=== PATIENT | female | born 1955 | race Caucasian/White ===

== ENCOUNTER → 2016-04-28 | Outpatient (CLI) | payer BC ==
[~2016-04-28] MED LIST: ALLEGRA PO; ASPIRIN PO; CERTAGEN PO; LOTENSIN PO; POSTURE600 MG PO
--- NOTE | ~2016-04-28 | CR61 ---
[facility] A Service of [facility] & [facility] / [facility] RADIOLOGY TEXT RESULTS PATIENT: REJI EVANGELISTA LOCATION: [facility] : 53 UNIT #: [id number] AGE: [address]: Veena Clinton MD SEX: F ORDER DR: [id number] [facility] [address] [place], [place] [address] [id number] O MR#: [id number] Acc #: [id number] NAME: REJI EVANGELISTA : 1955 SEX: F STUDY DATE/TIME: 04/28/2016 11:25 UNIT: [facility] ROOM: STUDY DESCRIPTION: CR Cervical Spine Min 5 Views Attending Physician: Veena Clinton M.D. Referring Physician: Veena Clinton M.D. Ordering Physician: Veena Clinton M.D. Primary Care Physician: Veena Clinton M.D. MEDICAL IMAGING REPORT This report is preliminary unless electronic signature is present EXAM Cervical spine 5-view series HISTORY Neck pain for months. COMPARISON 07/02/2015 FINDINGS AP, odontoid and lateral neutral, flexion and extension views of the cervical spine were obtained. There is disc space narrowing at C5-6 with small anterior and posterior osteophyte formations. The other disc spaces are normal. There is straightening of the cervical spine. There is no subluxation in flexion or extension. There is no fracture. There is no change from 07/02/2015. IMPRESSION This study includes flexion and extension views. The degenerative changes at C5-6 are stable with minimal posterior osteophyte formation and disc space narrowing. There is no subluxation in flexion or extension. Otherwise the cervical spine appears normal. Dictated by... Elroy Louis M.D. THIS IS AN ELECTRONICALLY VERIFIED REPORT Elroy Louis M.D. at 04/29/2016 11:26 AM KWAME/desean TD: 04/29/2016 11:13 JOB #: [id number] [facility] A Service of [facility] & [facility] / [facility] RADIOLOGY TEXT RESULTS PATIENT: REJ[facility] EVANGELISTA [id number] 53 UNIT #: [id number] AGE: [address]: Veena Clinton MD SEX: F ORDER DR: MEDICAL IMAGING REPORT COPY
== END | disposition home or self-care (01) ==
LOC: CRAD 10:22
DX: M50.10 Cervical disc disorder with radiculopathy, unspecified cervical region (principal); M47.22 Other spondylosis with radiculopathy, cervical region; M25.78 Osteophyte, vertebrae
CPT/HCPCS: 72050